=== PATIENT | female | born 1975 | race Caucasian/White ===

== ENCOUNTER → 2016-09-28 | Outpatient (CLI) | payer BC ==
[2016-09-28 13:19] LABS: BASOPHILS # (AUTO) 0.06 10*3/UL; BASOPHILS % (AUTO) 1.1 % (0-1); EOSINOPHILS # (AUTO) 0.17 10*3/UL; HEMATOCRIT 40.2 % (37.0-47.0); HEMOGLOBIN 13.2 g/dL (12.0-16.0); LYMPHOCYTES # (AUTO) 1.95 10*3/uL; MEAN CORPUSCULAR HEMOGLOBIN 26.1 PG (27-31); MEAN CORPUSCULAR HGB CONC 32.8 g/dL (33-37); MEAN CORPUSCULAR VOLUME 79.6 FL (81-99); MEAN PLATELET VOLUME 10.9 FL (7.4-12.2); MONOCYTES # (AUTO) 0.47 10*3/UL (0.3-0.8); MONOCYTES % (AUTO) 8.3 % (5-15); NEUTROPHILS # (AUTO) 3.01 10*3/UL; PLATELET MORPHOLOGY COMMENT NORMAL MORPHOLOGY (NORM); RBC MORPHOLOGY COMMENT NORMAL MORPHOLOGY (NORM); RED BLOOD COUNT 5.05 10^6/uL (4.20-5.40); WBC MORPHOLOGY COMMENT NORMAL MORPHOLOGY (NORM)
[2016-09-28 14:09] LABS: BLOOD UREA NITROGEN 7 mg/dL (7-22); CALCIUM 9.5 mg/dL (8.7-10.7); CHOL/HDL RATIO 4.43 RATIO (0-4.0); EST GLOMERULAR FILTRATION > 60 (>60 ml/min/1.73m(2)); HDL CHOLESTEROL 41 mg/dL (40-150); SERUM ALBUMIN 3.7 g/dL (3.5-4.8); SERUM CHOLESTEROL 182 mg/dL (120-200)
== END ==
LOC: MOB LAB 10:40
PROVIDERS: ATTEND Nurse Practitioner Family
DX: Z02.1 Encounter for pre-employment examination (principal)
CPT/HCPCS: 36415; 80053; 80061; 84443; 85025

== ENCOUNTER → 2016-10-07 | Outpatient (CLI) | payer BC ==
--- NOTE | 2016-10-07 15:33 | EKG ---
[address] [address] Measurements Intervals [place] Rate: 60 P: 56 OH: 153 QRS: 57 QRSD: 86 T: 45 QT: 442 QTc: 444 Interpretive Statements SINUS RHYTHM Compared to ECG 04/30/2014 14:16:19 No significant changes Electronically Signed On 10-07-16 17:16:51 MDT by Douglas Stanley [email or web address]
== END ==
LOC: MOB EKG 15:21
PROVIDERS: ATTEND Nurse Practitioner Family
DX: R00.2 Palpitations (principal); I49.3 Ventricular premature depolarization
CPT/HCPCS: 93005; 93010

== ENCOUNTER → 2016-10-16 | Outpatient (CLI) | payer BC | LOC: US 12:51 | PROVIDERS: ATTEND Nurse Practitioner Family | DX: R00.2 Palpitations (principal); R42 Dizziness and giddiness | CPT/HCPCS: 93306 ==

== ENCOUNTER → 2016-10-21 | Outpatient (CLI) | payer BC | LOC: LAB 07:30 | PROVIDERS: ATTEND Nurse Practitioner Family | DX: R19.7 Diarrhea, unspecified (principal); K92.1 Melena | CPT/HCPCS: 87046; 87205; 87328; 87329; 87493 ==

== ENCOUNTER 2017-05-01 22:35 | Inpatient (IN) ==
[2017-05-01] MEDS ORDERED: Sodium Chloride 0.9% 1,000 ML ONE (22:58)
[2017-05-01] MEDS ORDERED: fentaNYL Inj 100 MCG/2 ML VIAL IVP ONE (23:02)
[2017-05-01] MEDS ORDERED: NORMAL SALINE 10 ML SYRINGE FLUSH IVP PRN (23:02)
[2017-05-01] MEDS ORDERED: ONDANSETRON 4 MG/2 ML VIAL IVP ONE (23:02)
[2017-05-01 23:25] LABS: BASOPHILS # (AUTO) 0.05 10*3/UL; BASOPHILS % (AUTO) 0.8 % (0-1); EOSINOPHILS # (AUTO) 0.34 10*3/UL; EOSINOPHILS % (AUTO) 5.2 % (0-8); Hematocrit [HCT] 37.8 % (37.0-47.0); LYMPHOCYTES # (AUTO) 0.73 10*3/uL; MEAN CORPUSCULAR HEMOGLOBIN 29.5 PG (27-31); MEAN CORPUSCULAR HGB CONC 34.4 g/dL (33-37); MEAN CORPUSCULAR VOLUME 85.7 FL (81-99); MEAN PLATELET VOLUME 9.4 FL (7.4-12.2); MONOCYTES # (AUTO) 0.49 10*3/UL (0.3-0.8); MONOCYTES % (AUTO) 7.5 % (5-15); NEUTROPHILS # (AUTO) 4.91 10*3/UL; NEUTROPHILS % (AUTO) 75.1 % (50-80); RED BLOOD COUNT 4.41 10^6/uL (4.20-5.40)
[2017-05-01 23:27] LABS: PLATELET MORPHOLOGY COMMENT NORMAL MORPHOLOGY (NORM); RBC MORPHOLOGY COMMENT NORMAL MORPHOLOGY (NORM); WBC MORPHOLOGY COMMENT NORMAL MORPHOLOGY (NORM)
[2017-05-01 23:36] LABS: BUN/CREATININE RATIO 14.54 (6-20); SERUM ALBUMIN 4.5 g/dL (3.5-4.8)
--- NOTE | 2017-05-01 23:44 | PDOC ---
Abdomen/Flank HPI - General Chief Complaint: Genitourinary Complaint Stated Complaint: right abdomen/flank pain Date Seen by Provider: 05/01/17 Time Seen by Provider: 22:55 Source: POSITIVE: Patient Exam Limitations: POSITIVE: No limitations Nurse's Notes Reviewed & Considered: Yes - History of Present Illness Initial Comments: The patient is a 42-year-old female who presents to the emergency department with complaints of right flank and right lower quadrant abdominal pain. She has a history of colon cancer and is status post resection in [facility] 3 weeks ago. She does have an ostomy in the right lower abdomen. She states that earlier this week she had developed some pressure after urinating in her lower abdomen and pelvis. She underwent workup which included a CT scan which showed postoperative changes however no definitive abscess or any other acute abnormality. Her urinalysis had revealed some white blood cells and red blood cells and she was placed on antibiotics for treatment of urinary tract infection. She continues to have those same symptoms however this evening she has had onset of worsening pain on her right flank area with some radiation of pain around to her right lower abdomen. She has associated nausea and had emesis 1. She states that she still is having stool out of her ostomy which appears normal. She denies dysuria or hematuria. She still has that vague pressure sensation after she urinates. She denies fevers or chills. This evening she tried taking oxycodone as well as Valium and had no pain relief. - Patient Home Medications Home Medications: Home Medications Omeprazole 2 cap PO BID #180 cap 08/06/16 Simvastatin [Zocor] 1 tab ORAL QD #90 tab 08/06/16 Metoprolol Succinate 75 mg PO QD #90 tab 10/07/16 Apixaban [Eliquis] 5 mg PO Q12H #60 tab 02/20/17 hydrocodone 5 mg-acetaminophen 300 mg tablet 1 tab PO BID PRN #30 tab 03/12/17 tvitsywveo-wsbgilnyeakxe-huxkjuce 50 mg-300 mg-40 mg capsule 1 cap PO Q4H PRN # 30 cap 03/25/17 Sulfamethoxazole/Trimethoprim [Bactrim Ds Tablet] 1 tab PO Q12H #20 tab amoxicillin 875 mg-potassium clavulanate 125 mg tablet 1 tab PO BID #10 tab 04/18 - Patient Allergies Allergies/Adverse Reactions: Allergies 3 Allergy/AdvReac Type Severity Reaction Status Date / Time morphine Allergy Intermediate tightness Verified 05/01/17 23:09 in chest Penicillins Allergy Unknown NOT Verified 05/01/17 23:09 APPLICABLE Past Medical History - heen HEENT History: Denies History Cardiovascular History: DVTs, Hyperlipidemia Additional Cardiovasular History: palpatations. DVT 2006 with knee surgery and Both lungs. DVT 02/20/2017 Right lung Respiratory History: Pulmonary Embolism, Other (please comment) Additional Respiratory History: damaged to right side from PE in 2006 Gastrointestinal History: GERD, Other (please comment) Additional Gastrointestinal History: Diarrhea, BRBPR Genitourinary History: Denies History Endocrine History: Denies History Musculoskeletal History: Denies History, Other (please comment) Prosthesis or Implant: Yes (neck hwr/port right side) Additional Musculoskeletal History: her neck-bulging 3 surgeries- still not fused, nerve stimulator inserted and didn't work and removed Neurological History: Migraines, Motion Sickness, Frequent Headaches Additional Neurological History: 2-3 times a month-migraine. daily REES Blood Disorders: Anemia Additional Blood Disorders History: Given a bag of iron 2016 Psychiatric History: Denies History History of Sexually Transmitted Diseases: No Cancer History: Colon Cancer Treatment / Date(s) of Treatment: currently undergoing chemo/radiation History of MDRO: No History of Other Communicable Diseases: No In the Past 12 Months, Have Used or Abuse Any Substance: None Previous Surgical History: Yes Type / Date of Surgery: EGD/ Neck surgery 2006-neck x4 / Endometral ablation 2005/ left Knee surgery 2005/Colonoscopy/PORT right upper chest 2016 Anesthesia Reactions: Yes (PONV) Malignant Hyperthermia: No Significant Family History: Heart disease, Diabetes, Vascular disease Additional Family History: Rheumatiod arthritis/ Hyperlipidemia Past Medical History Reviewed: Reviewed - No Changes ROS - Limitations ROS Limitations: No Limitations Constitution: DENIES: Chills, Fever Cardiovascular: REPORTS: Denies Cardiac Symptoms Respiratory: REPORTS: Denies Resp Symptoms Neurological: REPORTS: Denies Neuro Symptoms Gastrointestinal: REPORTS: Abdominal Pain, Nausea, Vomitting. DENIES: Black Stools, Bloody Stools Musculoskeletal: REPORTS: Denies MS Symptoms Genitourinary: DENIES: Dysuria Abdomen Progress - Results Reviewed by me Xrays/CTs/US Reviewed by me: Yes Discussed with Radiologist: Yes Radiology Findings: CT scan of the abdomen and pelvis with IV contrast reveals continued mild inflammatory changes at the anastomotic site in the colon along with some nonspecific small amount of free air and fluid basically unchanged from CT scan from April 26. No obstructive uropathy, bowel obstruction or any other acute findings per radiologist. Lab Results Reviewed by Me: Yes CBC and BMP: 05/01/17 23:10 05/01/17 23:10 - Patient's Progress MDM / ED Course: The patient appeared to be quite uncomfortable on arrival. An IV was established and she received fentanyl and Zofran IV for pain. This really had minimal effect and she received a second dose of fentanyl again with only minimal improvement. She subsequently received Dilaudid 1 mg IV. Her pain improved slightly and her oxygen saturations dropped so she was placed on O2 per nasal cannula. After CT results were available she received Toradol 15 mg IV. Her pain slowly improved to a 5 out of 10. Her lab work is all essentially unremarkable with a normal white count and normal CRP. CT scan of the abdomen and pelvis done with IV contrast reveals continued inflammatory changes around the anastomotic site in the colon with some nonspecific small amount of free fluid and small amount of free air similar in appearance to the CAT scan done on April 26. No hydronephrosis and no other acute intra- abdominal findings per radiologist. I did discuss the patient with Dr. Gerard and he was concerned about a small leak from the anastomotic site in the colon. He recommended hospitalization on IV antibiotics and pain control. I subsequently spoke with Dr. Burroughs and he has agreed to admit the patient. She was started on Invanz 1 g IV. Findings and recommendations were discussed with the patient and her and they're in agreement with current plan. - Consult Counseled: POSITIVE: Patient, RE: Lab Results, RE: Radiology Results, RE: DX, RE : Need for F/U Patient Care Time - Estimated PCT Patient Care Time (In Minutes): 45 Vital Signs - VS Reviewed Vital Signs Reviewed: Yes Discharge Clinical Impression: Abdominal pain, Flank pain Discharge Disposition: Admit to Inpatient Condition: Stable Follow Up With: ERIKA PINEDO FNP [Primary Care Provider] - Date Decision to Admit to Inpatient: 05/02/17 Time Decision to Admit to Inpatient: 02:00
[2017-05-02] MEDS ORDERED: HYDROmorphone 2 MG/1 ML IVP ONE (00:12)
--- NOTE | 2017-05-02 01:15 | DI ---
EXAM: CT Abdomen and Pelvis With Intravenous Contrast CLINICAL HISTORY: ITS.REASON Abdominal Pain Physician Notes: Tech Comments: TECHNIQUE: Axial computed tomography images of the abdomen and pelvis with intravenous contrast. COMPARISON: CT abdomen pelvis dated 04/26/2017. FINDINGS: Lower thorax: No acute findings. ABDOMEN: Liver: Unchanged 5 mm low-attenuation lesion in the inferior liver is nonspecific. Gallbladder and bile ducts: Unremarkable. No calcified stones. No ductal dilation. Pancreas: Unremarkable. No evidence of mass. No ductal dilation. Spleen: Unremarkable. No splenomegaly. Adrenals: Unremarkable. No mass. Kidneys and ureters: Unchanged simple appearing 4.6 cm left renal cyst. No hydronephrosis. Stomach and bowel: Reidentified post surgical changes related to rectal surgery and anastomosis. There is reidentified mild intraperitoneal air, similar to the prior exam. There is unchanged minimal fluid and fat stranding within the pelvis adjacent to the distal sigmoid colon there is nonspecific. Right lower quadrant ostomy. No obstruction. No mucosal thickening. Appendix: No findings to suggest acute appendicitis. PELVIS: Bladder: Unremarkable. No evidence of mass. Reproductive: Reidentified presumed uterine fibroids. ABDOMEN and PELVIS: Intraperitoneal space: Unremarkable. No free air. No significant fluid collection. Bones/joints: No acute fracture. Soft tissues: Unremarkable. Vasculature: Unremarkable. No abdominal aortic aneurysm. Lymph nodes: Unremarkable. No enlarged lymph nodes. IMPRESSION: Reidentified postoperative and possibly posttreatment findings related to prior rectosigmoid anastomosis with unchanged nonspecific fluid and fat stranding in the pelvis. Unchanged minimal intraperitoneal free air is somewhat greater than expected at this stage. Unchanged 5 mm nonspecific low attenuation hepatic lesion is too small to characterize.
[2017-05-02] MEDS ORDERED: KETOROLAC 15 MG/1 ML VIAL IVP ONE (01:28)
[2017-05-02] MEDS ORDERED: KETOROLAC 15 MG/1 ML VIAL ONE (01:29)
[2017-05-02 01:40] LABS: BILIRUBIN,URINE NEGATIVE (NEG); CLARITY,URINE CLOUDY (CLEAR); COLOR,URINE BROWN (Y); GLUCOSE, URINE (UA) NEGATIVE (NEG); OCCULT BLOOD,URINE LARGE (NEG); PH,URINE 5.5 (5.0-8.5); PROTEIN,URINE 100 mg/dl (NEG); UROBILINOGEN,URINE 0.2 EU/dL (0.2)
[2017-05-02 01:50] LABS: BACTERIA,URINE RARE; RBC,URINE >100 /hpf; RENAL EPITHELIAL CELLS,URINE MODERATE; SQUAMOUS EPITHELIAL CELL,UR MANY; URINE SAMPLE TYPE CLEAN CATCH URINE
[2017-05-02] MEDS ORDERED: Sodium Chloride 0.9% 1,000 ML PRIMARY IV ONE ×3 (01:50→11:33)
[2017-05-02 01:51] LABS: URINE CASTS MODERATE
[2017-05-02] MEDS ORDERED: Ertapenem Inj 1 GM in Sodium Chloride 0.9% 100 ML IV ONE ×2 (01:54→02:11)
[2017-05-02] MEDS ORDERED: ACETAMINOPHEN 325 MG TABLET PO PRN (02:11)
[2017-05-02] MEDS ORDERED: NORMAL SALINE 10 ML SYRINGE FLUSH IVP PRN (02:11)
[2017-05-02] MEDS ORDERED: CALCIUM CARBONATE 500 MG (TUMS) CHEWABLE TABLET PO PRN (02:11)
[2017-05-02] MEDS ORDERED: Apixaban 5 MG TABLET PO SCH (02:11)
[2017-05-02] MEDS ORDERED: DOCUSATE 100 MG CAPSULE PO PRN (02:11)
[2017-05-02] MEDS ORDERED: LIDOCAINE W/ SODIUM BICARB 0.5 ML SYR SUBD PRN (02:11)
[2017-05-02] MEDS: Sodium Chloride 0.9% 1,000 ML PRIMARY IV SCH ×3 (02:26→21:20)
[2017-05-02] MEDS ORDERED: HYDROcodone-APAP 5 MG -325 MG TABLET PO PRN (02:30)
[2017-05-02] MEDS ORDERED: Acet/Butalb/Caff 325-50-40 1 TAB TABLET PO PRN (02:30)
[2017-05-02] MEDS ORDERED: oxyCODONE/APAP 10/325 Tab 1 EACH TAB PO PRN (05:11)
[2017-05-02] MEDS ORDERED: DIAZEPAM 5 MG TABLET PO PRN (05:13)
[2017-05-02] MEDS: HYDROmorphone 2 MG/1 ML IVP PRN ×4 (05:23→15:57)
[2017-05-02] MEDS: ONDANSETRON 4 MG/2 ML VIAL IVP PRN ×2 (07:58→12:34)
[2017-05-02] MEDS: Apixaban 5 MG TABLET PO SCH ×2 (08:57→21:16)
[2017-05-02] MEDS: METOPROLOL SUCCINATE 50 MG SR 24H TABLET PO SCH (10:40)
[2017-05-02] MEDS ORDERED: oxyCODONE IR Tab 5 MG TAB PO PRN (10:45)
[2017-05-02] MEDS ORDERED: HEPARIN 500 UNIT/5 ML SYRINGE FOR CENTRAL LINE IVP ONE (10:51)
[2017-05-02 11:14] LABS: BASOPHILS # (AUTO) 0.04 10*3/UL; EOSINOPHILS # (AUTO) 0.24 10*3/UL; Hematocrit [HCT] 33.4 % (37.0-47.0); LYMPHOCYTES # (AUTO) 0.71 10*3/uL; MEAN CORPUSCULAR HEMOGLOBIN 29.2 PG (27-31); MEAN CORPUSCULAR HGB CONC 32.9 g/dL (33-37); MEAN CORPUSCULAR VOLUME 88.6 FL (81-99); MEAN PLATELET VOLUME 9.4 FL (7.4-12.2); MONOCYTES # (AUTO) 0.46 10*3/UL (0.3-0.8); MONOCYTES % (AUTO) 11.5 % (5-15); NEUTROPHILS # (AUTO) 2.54 10*3/UL; NEUTROPHILS % (AUTO) 63.7 % (50-80); RED BLOOD COUNT 3.77 10^6/uL (4.20-5.40)
[2017-05-02 11:19] LABS: PLATELET MORPHOLOGY COMMENT NORMAL MORPHOLOGY (NORM); RBC MORPHOLOGY COMMENT NORMAL MORPHOLOGY (NORM); WBC MORPHOLOGY COMMENT NORMAL MORPHOLOGY (NORM)
[2017-05-02 11:28] LABS: BLOOD UREA NITROGEN 14 mg/dL (7-22); SERUM ALBUMIN 3.5 g/dL (3.5-4.8)
--- NOTE | 2017-05-02 12:54 | PDOC ---
HPI - History of Present Illness Date of Service: 05/02/17 Time of Service: 10:30 Chief Complaint: Right-sided pain History of Present Illness: This very pleasant 42-year-old female recently diagnosed with a rectal cancer and 3 weeks ago she had a partial resection of the colon with a diverting ileostomy. About a week ago, she developed bladder pressure and was diagnosed with a urinary tract infection, and placed on antibiotics. The bladder pressure has been persistent for the patient. She states it does not burn or hurt like a urinary tract infection, but she's had continuous bladder pressure. Yesterday, she had sudden onset of right flank pain, just below her ribs and her back, and it seemed to radiate downwards but not down her leg. She stated it went into her pelvic bone area. She's never had anything like this before. She had to vomit because of the pain. She denied any fevers or chills. A CT scan of the abdomen and pelvis showed postoperative changes with some inflammatory changes, but no evidence of stone but the CT scan was done with contrast. He has never had a kidney stone before. Urinalysis was negative for infection, but was significant for a large amount of red blood cells. Interestingly, the patient states that she's been increasing her water intake since her diagnosis of rectal carcinoma, and that her urine has been very clear as of late. When she had a "Pond colored" urine yesterday, she was quite surprised by the appearance of the urine. She did take oxycodone for her postoperative pain to try and control the right flank pain and it did not help at all. Valium also did not help. Toradol seemed to help the most in the emergency room yesterday, but this morning, the patient is hypotensive and is requiring more fluids. She does not appear septic despite her hypotension. The patient also mentioned that it was very difficult to have her pain and improve with position changes. Past Medical History Medical History: 1. Rectal carcinoma. 2. Palpitations, presumably related to PVCs, on beta negro therapy for this. 3. History of PEs 2, in relation to her recent Mediport for chemotherapy and also with a knee surgery in the past. 4. Hypercholesterolemia Surgical History: Mediport placed. History of colonoscopy. History of EGD. History of neck surgery. Status post endometrial ablation (~2005). Status post knee surgery (~2005). The patient had recent partial colon resection with an ileostomy Pertinent Family History: Significant for heart disease and diabetes Past Social History: Does not smoke or drink alcohol. . Has 2 healthy children both in college. 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 Tobacco Use: Never Smoker In the Past 12 Months, Have Used or Abuse Any of the Following Substance: None Alcohol Use: None Medication / Allergies Home Medications: Home Medications 3 Medication Instructions Recorded Confirmed Type Omeprazole 2 cap PO BID #180 cap 08/06/16 04/26/17 Rx Simvastatin [Zocor] 1 tab ORAL QD #90 tab 08/06/16 04/26/17 Rx Metoprolol Succinate 75 mg PO QD #90 tab 10/07/16 Clinic Apixaban [Eliquis] 5 mg PO Q12H #60 tab 02/20/17 04/26/17 Rx aauvnazpue-xxrwsvxbtdpeb-kbfrwphl 1 cap PO Q4H PRN #30 cap 03/25/17 04/26/17 Rx 50 mg-300 mg-40 mg capsule amoxicillin 875 mg-potassium 1 tab PO BID #10 tab 04/30/17 04/30/17 Rx clavulanate 125 mg tablet Diazepam 5 mg PO BID 05/02/17 05/02/17 History Oxycodone HCl 1 - 2 tab PO 05/02/17 History Allergies/Adverse Reactions: Allergies 3 Allergy/AdvReac Type Severity Reaction Status Date / Time morphine Allergy Intermediate tightness Verified 05/02/17 06:22 in chest Penicillins Allergy Unknown NOT Verified 05/02/17 06:22 APPLICABLE Review of Systems - Constitutional Constitutional: REPORTS: Night Sweats (She states that she has not had a period in over 12 weeks and may have gone into menopause from her radiation therapy.) - Respiratory Respiratory: REPORTS: Negative System Review - Cardiovascular Cardiovascular: REPORTS: Negative System Review - Gastrointestinal Gastrointestinal / Abdominal: REPORTS: See HPI - Genitourinary Genitourinary: REPORTS: Other (Bladder pressure. Denied hematuria at home.) - Musculoskeletal Musculoskeletal: REPORTS: Negative System Review - Neurological Neurologic: REPORTS: Headache (States she has a daily headache that she takes Excedrin daily.) - Psychiatric Psychiatric: REPORTS: Negative System Review Exam - Vitals Vital Signs: Vital Signs Temperature 97.9 F Temperature Source Temporal Artery Scan Pulse Rate [Apical] 62 Pulse Rate [Pulse Oximeter] 64 Pulse Rate 70 Respiratory Rate 17 Blood Pressure [Left Arm] 88/49 Blood Pressure 119/74 Pulse Ox 95 Oxygen Flow Rate 2 Oxygen Delivery Method Room Air Height 5 ft 9 in Weight 181 lb 3.2 oz - General General Appearance: No Acute Distress, Cooperative - Head Head Exam: Normal Inspection, Normocephalic, Atraumatic - Eye Eye Exam: POSITIVE: No Scleral Icterus - ENT ENT Exam: POSITIVE: Mucous Membranes Moist - Neck Neck Exam: Normal Inspection, No Tenderness, No Lymphadenopathy, No Thyromegaly - Respiratory Respiratory Exam: POSITIVE: Clear to Auscultation - Bilaterally, Breathing Non Labored, Normal to Percussion and Palpation - Cardiovascular Cardiovascular Exam: POSITIVE: RRR, No Murmur, No Clicks, No Gallops, No Rubs, No JVD - GI/Abdominal GI/Abdominal Exam: POSITIVE: Normal Bowel Sounds, Non Tender, Non Distended, Soft Additional GI/Abdominal Exam Details: Ileostomy site looks okay. Incisions are clean, dry, intact. They look healed up fairly well. Seen with distribution lineman nurse in room. I could not elicit any flank tenderness on palpation. - Rectal Rectal Exam: POSITIVE: Deferred - External Exam: POSITIVE: Deferred - Extremities Extremities Exam: POSITIVE: No Clubbing Present, No Edema Present, No Cyanosis Present - Back Back Exam: POSITIVE: Normal Inspection, No CVA Tenderness - Neurological Neurological Exam: POSITIVE: Alert, Oriented x 3, No Facial Droop, Speech Intact / Clear, Moves All Extremities Equally - Psychiatric Psychiatric Exam: POSITIVE: Normal Affect, Normal Mood Results - Labs CBC and BMP: 05/02/17 10:08 05/02/17 10:08 Additional Lab Results: Laboratory Results 05/01/17 05/01/17 05/01/17 Range/Units 01:30 23:10 23:10 WBC 6.53 (4.8-10.8) 10^3/uL RBC 4.41 (4.20-5.40) 10^6/uL Hgb 13.0 (12.0-16.0) g/dL Hct 37.8 (37.0-47.0) % MCV 85.7 (81-99) FL MCH 29.5 (27-31) PG MCHC 34.4 (33-37) g/dL RDW Std Deviation 38.0 L (39-50) fL RDW Coeff of Eulalia 12.5 (11.5-14.5) % Plt Count 422 H (140-350) 10*3/uL MPV 9.4 (7.4-12.2) FL Immature Gran % (Auto) 0.2 (0-5) % Neut % (Auto) 75.1 (50-80) % Lymph % (Auto) 11.2 (10-50) % [place] % (Auto) 7.5 (5-15) % Eos % (Auto) 5.2 (0-8) % Baso % (Auto) 0.8 (0-1) % Immature Gran # (Auto) 0.01 10*3/UL Neut # (Auto) 4.91 10*3/UL Lymph # (Auto) 0.73 10*3/uL [place] # (Auto) 0.49 (0.3-0.8) 10*3/UL Eos # (Auto) 0.34 10*3/UL Baso # (Auto) 0.05 10*3/UL WBC Morphology Comment Normal morphology (NORM) Plt Morphology Comment Normal morphology (NORM) RBC Morph Comment Normal morphology (NORM) PT (9.7-11.4) secs INR (0.00-5.90) N/A APTT (22.6-36.2) SECS Sodium 140 (135-145) meq/L Potassium 3.9 (3.8-5.2) meq/L Chloride 102 (98-112) meq/L Carbon Dioxide 22 L (23-33) meq/L Anion Gap 16 (5-20) BUN 16 (7-22) mg/dL Creatinine 1.1 (0.50-1.20) mg/dL Estimated GFR 54 (>60 ml/min/1.73m(2)) BUN/Creatinine Ratio 14.54 (6-20) Glucose 116 H (78-110) mg/dL Calculated Osmolality 291.0 (267-292) mOsm/kg Lactic Acid (0.70-2.10) MMOL/L Calcium 10.0 (8.7-10.7) mg/dL Total Bilirubin 0.3 (0.3-1.2) mg/dL AST 17 (8-39) IU/L ALT 29 (9-52) IU/L Alkaline Phosphatase 86 (38-126) IU/L C-Reactive Protein 0.9 (0.0-0.9) mg/dL Total Protein 7.3 (6.1-8.0) g/dL Albumin 4.5 (3.5-4.8) g/dL Globulin 2.8 (2.50-4.10) g/dL Albumin/Globulin Ratio 1.60 (1.3-2.0) mg/g Amylase 83 (30-110) U/L Lipase 64 (23-300) IU/L Serum HCG, Qual Ur Collection Type Clean catch urine Urine Color Brown A (Y) Urine Clarity Cloudy A (CLEAR) Urine pH 5.5 (5.0-8.5) Ur Specific [place] 1.015 (1.005-1.030) Urine Protein 100 A (NEG) mg/dl Urine Glucose (UA) Negative (NEG) mg/dL Urine Ketones Negative (NEG) Urine Occult Blood Large H (NEG) Urine Nitrate Negative (NEG) Urine Bilirubin Negative (NEG) Urine Urobilinogen 0.2 (0.2) EU/dL Ur Leukocyte Esterase Negative (NEG) Urine RBC >100 A (NONE) /hpf Urine WBC None (NONE) Ur Squamous Epith Cells Many (NONE) Ur Renal Epithelial Cell Moderate (NONE) Urine Crystals None Urine Bacteria Rare (NONE) Urine Casts Moderate (NONE) Urine Mucus Many (NONE) Urine Trichomonas None (NONE) Urine Yeast None (NONE) Ur Culture Indicated? Culture not set 05/01/17 05/02/17 05/02/17 Range/Units 23:10 10:08 10:08 WBC 3.99 L (4.8-10.8) 10^3/uL RBC 3.77 L (4.20-5.40) 10^6/uL Hgb 11.0 L (12.0-16.0) g/dL Hct 33.4 L (37.0-47.0) % MCV 88.6 (81-99) FL MCH 29.2 (27-31) PG MCHC 32.9 L (33-37) g/dL RDW Std Deviation 39.2 (39-50) fL RDW Coeff of Eulalia 12.5 (11.5-14.5) % Plt Count 377 H (140-350) 10*3/uL MPV 9.4 (7.4-12.2) FL Immature Gran % (Auto) 0 (0-5) % Neut % (Auto) 63.7 (50-80) % Lymph % (Auto) 17.8 (10-50) % [place] % (Auto) 11.5 (5-15) % Eos % (Auto) 6.0 (0-8) % Baso % (Auto) 1.0 (0-1) % Immature Gran # (Auto) 0 10*3/UL Neut # (Auto) 2.54 10*3/UL Lymph # (Auto) 0.71 10*3/uL [place] # (Auto) 0.46 (0.3-0.8) 10*3/UL Eos # (Auto) 0.24 10*3/UL Baso # (Auto) 0.04 10*3/UL WBC Morphology Comment Normal morphology (NORM) Plt Morphology Comment Normal morphology (NORM) RBC Morph Comment Normal morphology (NORM) PT 11.4 (9.7-11.4) secs INR 1.07 (0.00-5.90) N/A APTT 33.2 (22.6-36.2) SECS Sodium (135-145) meq/L Potassium (3.8-5.2) meq/L Chloride (98-112) meq/L Carbon Dioxide (23-33) meq/L Anion Gap (5-20) BUN (7-22) mg/dL Creatinine (0.50-1.20) mg/dL Estimated GFR (>60 ml/min/1.73m(2)) BUN/Creatinine Ratio (6-20) Glucose (78-110) mg/dL Calculated Osmolality (267-292) mOsm/kg Lactic Acid (0.70-2.10) MMOL/L Calcium (8.7-10.7) mg/dL Total Bilirubin (0.3-1.2) mg/dL AST (8-39) IU/L ALT (9-52) IU/L Alkaline Phosphatase (38-126) IU/L C-Reactive Protein (0.0-0.9) mg/dL Total Protein (6.1-8.0) g/dL Albumin (3.5-4.8) g/dL Globulin (2.50-4.10) g/dL Albumin/Globulin Ratio (1.3-2.0) mg/g Amylase (30-110) U/L Lipase (23-300) IU/L Serum HCG, Qual Negative Ur Collection Type Urine Color (Y) Urine Clarity (CLEAR) Urine pH (5.0-8.5) Ur Specific [place] (1.005-1.030) Urine Protein (NEG) mg/dl Urine Glucose (UA) (NEG) mg/dL Urine Ketones (NEG) Urine Occult Blood (NEG) Urine Nitrate (NEG) Urine Bilirubin (NEG) Urine Urobilinogen (0.2) EU/dL Ur Leukocyte Esterase (NEG) Urine RBC (NONE) /hpf Urine WBC (NONE) Ur Squamous Epith Cells (NONE) Ur Renal Epithelial Cell (NONE) Urine Crystals Urine Bacteria (NONE) Urine Casts (NONE) Urine Mucus (NONE) Urine Trichomonas (NONE) Urine Yeast (NONE) Ur Culture Indicated? 05/02/17 05/02/17 Range/Units 10:08 10:08 WBC (4.8-10.8) 10^3/uL RBC (4.20-5.40) 10^6/uL Hgb (12.0-16.0) g/dL Hct (37.0-47.0) % MCV (81-99) FL MCH (27-31) PG MCHC (33-37) g/dL RDW Std Deviation (39-50) fL RDW Coeff of Eulalia (11.5-14.5) % Plt Count (140-350) 10*3/uL MPV (7.4-12.2) FL Immature Gran % (Auto) (0-5) % Neut % (Auto) (50-80) % Lymph % (Auto) (10-50) % [place] % (Auto) (5-15) % Eos % (Auto) (0-8) % Baso % (Auto) (0-1) % Immature Gran # (Auto) 10*3/UL Neut # (Auto) 10*3/UL Lymph # (Auto) 10*3/uL [place] # (Auto) (0.3-0.8) 10*3/UL Eos # (Auto) 10*3/UL Baso # (Auto) 10*3/UL WBC Morphology Comment (NORM) Plt Morphology Comment (NORM) RBC Morph Comment (NORM) PT (9.7-11.4) secs INR (0.00-5.90) N/A APTT (22.6-36.2) SECS Sodium 138 (135-145) meq/L Potassium 4.1 (3.8-5.2) meq/L Chloride 106 (98-112) meq/L Carbon Dioxide 24 (23-33) meq/L Anion Gap 8 (5-20) BUN 14 (7-22) mg/dL Creatinine 0.8 (0.50-1.20) mg/dL Estimated GFR > 60 (>60 ml/min/1.73m(2)) BUN/Creatinine Ratio 17.50 (6-20) Glucose 95 (78-110) mg/dL Calculated Osmolality 286.0 (267-292) mOsm/kg Lactic Acid 0.6 L (0.70-2.10) MMOL/L Calcium 8.5 L (8.7-10.7) mg/dL Total Bilirubin 0.3 (0.3-1.2) mg/dL AST 10 (8-39) IU/L ALT 25 (9-52) IU/L Alkaline Phosphatase 64 (38-126) IU/L C-Reactive Protein (0.0-0.9) mg/dL Total Protein 5.9 L (6.1-8.0) g/dL Albumin 3.5 (3.5-4.8) g/dL Globulin 2.4 L (2.50-4.10) g/dL Albumin/Globulin Ratio 1.40 (1.3-2.0) mg/g Amylase (30-110) U/L Lipase (23-300) IU/L Serum HCG, Qual Ur Collection Type Urine Color (Y) Urine Clarity (CLEAR) Urine pH (5.0-8.5) Ur Specific [place] (1.005-1.030) Urine Protein (NEG) mg/dl Urine Glucose (UA) (NEG) mg/dL Urine Ketones (NEG) Urine Occult Blood (NEG) Urine Nitrate (NEG) Urine Bilirubin (NEG) Urine Urobilinogen (0.2) EU/dL Ur Leukocyte Esterase (NEG) Urine RBC (NONE) /hpf Urine WBC (NONE) Ur Squamous Epith Cells (NONE) Ur Renal Epithelial Cell (NONE) Urine Crystals Urine Bacteria (NONE) Urine Casts (NONE) Urine Mucus (NONE) Urine Trichomonas (NONE) Urine Yeast (NONE) Ur Culture Indicated? - Imaging Status: Image Reviewed by Me (I looked at the CT scan, and read the report. There are some postsurgical inflammatory changes.) Assessment and Plan - Patient Problems (1) Acute right flank pain Current Visit: Yes Status: Acute Code(s): R10.9 - Unspecified abdominal pain (2) Rectal cancer Current Visit: No Status: Acute Code(s): C20 - Malignant neoplasm of rectum (3) Hematuria Current Visit: Yes Status: Acute Code(s): R31.9 - Hematuria, unspecified Qualifiers: Hematuria type: other microscopic Qualified Code(s): R31.29 - Other microscopic hematuria; R31.2 - Other microscopic hematuria (4) Hypercholesterolemia Current Visit: Yes Status: Acute Code(s): E78.00 - Pure hypercholesterolemia , unspecified (5) Palpitations Current Visit: Yes Status: Acute Code(s): R00.2 - Palpitations - Assessment / Plan Additional Assessment/Plan Details: For the hypotension, bolus the patient with 2 L of normal saline, keep him saline at 125 mL's per hour. I'm going to repeat CT scan with no contrast to look for kidney stones. This year and does not look infected, for now, the patient is on Invanz 1 g IV every 24 hours. We may need to stop antibiotics as I'm not sure that we have a true infectious source at this point. There is some thought that maybe this could be a postinflammatory issue from the initial colon surgery, but there is no evidence of abscess on CT scan. Dilaudid for pain. Further diagnostic evaluation based on CT scan results above. One thought could be that perhaps the patient's developing some sort of pelvic inflammatory disease with pressure with urination and migratory pains that her flank pains. It would be rare, but can happen postoperatively. However the incision looks clean and does not look like it has any induration or redness around it. I discussed with general surgery, but there does not seem to be a surgical indication at this time for this patient.
--- NOTE | 2017-05-02 14:17 | DI ---
EXAM: CT Abdomen and Pelvis Without Intravenous Contrast CLINICAL HISTORY: right flank pain, question kidney stone TECHNIQUE: Axial computed tomography images of the abdomen and pelvis without intravenous contrast. COMPARISON: CT abdomen and pelvis obtained earlier the same date. FINDINGS: Lower thorax: Mild to moderate hiatal hernia. Linear atelectasis in bilateral lung bases. ABDOMEN: Liver: Unremarkable. Gallbladder and bile ducts: Layering hyperdensity in the bladder lumen likely related to vicarious contrast excretion. No adjacent inflammatory change. No ductal dilation. Pancreas: Unremarkable. No ductal dilation. Spleen: Unremarkable. No splenomegaly. Adrenals: Unremarkable. No mass. Kidneys and ureters: Urinary contrast excretion likely related to recent contrast dose decreases sensitivity for detection of small renal stones. No large radiodense renal or ureteral stones identified. No evidence of obstructive uropathy. 4.7 cm simple-appearing cyst in the left lower renal pole. Stomach and bowel: Right lower quadrant ileostomy. Anastomosis sutures in the rectum. Adjacent presacral stranding and fluid, likely postsurgical. No obstruction. No mucosal thickening. Appendix: No findings to suggest acute appendicitis. PELVIS: Bladder: Unremarkable. Reproductive: Bulky lobulated appearance of the uterus suggests fibroids. ABDOMEN and PELVIS: Intraperitoneal space: Tiny foci of free air. No significant fluid collection. Bones/joints: Degenerative changes at the lumbosacral junction. No acute fracture. No dislocation. Soft tissues: Unremarkable. Vasculature: Unremarkable. No abdominal aortic aneurysm. Lymph nodes: Unremarkable. No enlarged lymph nodes. IMPRESSION: 1. Urinary contrast excretion related to recent contrast dose decreases sensitivity for detection of small renal stones. No large radiodense renal or ureteral stones identified. No evidence of obstructive uropathy. 2. Layering hyperdensity in the gallbladder lumen likely related to vicarious contrast excretion. Differential may also include sludge. No adjacent inflammatory change. Normal caliber of the common bile duct. 3. Mild to moderate hiatal hernia. 4. 4.7 cm simple-appearing cyst in the left lower renal pole. 5. Post surgical changes including right lower quadrant ileostomy and a rectal anastomosis. No bowel obstruction. Tiny foci of free air as well as presacral stranding and fluid adjacent to the rectal anastomosis is likely postsurgical. 6. Bulky lobulated appearance of the uterus suggests fibroids.
[2017-05-02] MEDS: KETOROLAC 15 MG/1 ML VIAL IVP PRN (15:20)
[2017-05-02] MEDS ORDERED: HEPARIN 500 UNIT/5 ML SYRINGE FOR CENTRAL LINE IVP PRN (15:22)
[2017-05-02] MEDS ORDERED: fentaNYL Inj 100 MCG/2 ML VIAL IVP PRN (15:38)
[2017-05-02] MEDS ORDERED: Prochlorperazine Edisylate Inj 10mg/2ml vial IVP PRN (15:40)
[2017-05-02] MEDS: Ertapenem Inj 1 GM in Sodium Chloride 0.9% 100 ML IV SCH (15:58)
[2017-05-02] MEDS ORDERED: DIAZEPAM 5 MG TABLET PO SCH (17:00)
--- NOTE | 2017-05-02 17:42 | PDOC ---
HPI - History of Present Illness Date of Service: 05/02/17 Time of Service: 17:32 Chief Complaint: Flank and abdominal discomfort History of Present Illness: The patient is a 42-year-old LMP about 2-3 months ago who was diagnosed with rectal carcinoma in the fall and underwent radiation therapy. The patient then had resection of the rectal carcinoma via a robotic- assisted laparoscopy and minilaparotomy for resection of the colon cancer and an ileostomy. This was completed about 3 weeks ago. By patient report, the surgeon's saw significant endometriosis at the time of surgery 3 weeks ago. The patient now presents with pain. A week ago the patient was seen for pain that was in her left flank that radiated down to her left abdomen and pelvis. The patient had a CT scan. And then the patient returned yesterday with right flank pain that radiated down to her right upper leg anteriorly. The patient had a CT scan that did not show kidney stones. There was some reactive tissue around the ileostomy site and some mild free air. The patient was placed on antibiotics and was admitted. Dr. Casey Burroughs consulted me this afternoon secondary to her pain and the fact that she had endometriosis discovered at the time of her surgery 3 weeks ago. 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 She does have a remote history of abnormal Pap smears with colposcopies but she has never had a LEEP or a cold knife cone. No histories of STI's. About 10 years ago she had menometrorrhagia with soiling of her clothes and the patient had an endometrial ablation with either a balloon ablation or NovaSure-the patient was not clear on this. 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 The patient does Not have a history of dysmenorrhea, dyspareunia or chronic pelvic pain. The patient had radiation therapy in the fall for her rectal carcinoma and since about 2-3 months ago the patient has not had a menses. The patient started having vasomotor flushes around the time of her surgery 3 weeks ago. She has significant night sweats. The patient asked her oncologist about not having menses and he said that this could be common secondary to the radiation. The patient's CT scan in October 2016 as well as currently does show what is most likely a fibroid uterus. Normal size ovaries. Past medical history significant for the rectal carcinoma as above, heart palpitations, history of PE 2 and DVT. Hypercholesterolemia. GERD Endometriosis found at the time of the partial colon resection 3 weeks ago. Operative report not available yet. Past surgical history significant for recent partial colon resection with ileostomy secondary to the rectal carcinoma. Mediport placement, history of neck surgery, history of endometrial ablation, history of knee surgery. Allergies to morphine and penicillin No tobacco, no alcohol, no drugs Current medications omeprazole, Zocor, metoprolol, Eliquis, tears set, Augmentin which was prescribed last week, diazepam when necessary, oxycodone for pain when necessary Family history of DE and diabetes Past Medical History Medical History: 1. Rectal carcinoma. 2. Palpitations, presumably related to PVCs, on beta negro therapy for this. 3. History of PEs 2, in relation to her recent Mediport for chemotherapy and also with a knee surgery in the past. 4. Hypercholesterolemia Surgical History: Mediport placed. History of colonoscopy. History of EGD. History of neck surgery. Status post endometrial ablation (~2005). Status post knee surgery (~2005). The patient had recent partial colon resection with an ileostomy Pertinent Family History: Significant for heart disease and diabetes Past Social History: Does not smoke or drink alcohol. . Has 2 healthy children both in college. 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 Tobacco Use: Never Smoker In the Past 12 Months, Have Used or Abuse Any of the Following Substance: None Alcohol Use: None Medication / Allergies Home Medications: Home Medications 3 Medication Instructions Recorded Confirmed Type Omeprazole 2 cap PO BID #180 cap 08/06/16 04/26/17 Rx Simvastatin [Zocor] 1 tab ORAL QD #90 tab 08/06/16 04/26/17 Rx Metoprolol Succinate 75 mg PO QD #90 tab 10/07/16 Clinic Apixaban [Eliquis] 5 mg PO Q12H #60 tab 02/20/17 04/26/17 Rx yuboreybbt-exzasbtkotwpi-nvmfjqhc 1 cap PO Q4H PRN #30 cap 03/25/17 04/26/17 Rx 50 mg-300 mg-40 mg capsule amoxicillin 875 mg-potassium 1 tab PO BID #10 tab 04/30/17 04/30/17 Rx clavulanate 125 mg tablet Diazepam 5 mg PO BID 05/02/17 05/02/17 History Oxycodone HCl 1 - 2 tab PO 05/02/17 History Allergies/Adverse Reactions: Allergies 3 Allergy/AdvReac Type Severity Reaction Status Date / Time morphine Allergy Intermediate tightness Verified 05/02/17 06:22 in chest Penicillins Allergy Unknown NOT Verified 05/02/17 06:22 APPLICABLE Review of Systems - Constitutional Constitutional: REPORTS: Night Sweats (Vasomotor flushes) - Respiratory Respiratory: REPORTS: Negative System Review - Cardiovascular Cardiovascular: REPORTS: Negative System Review, Palpitations - Gastrointestinal Gastrointestinal / Abdominal: REPORTS: Negative System Review, Nausea, Vomiting , Abdominal Pain, Heartburn - Genitourinary Genitourinary: REPORTS: Negative System Review (Per HPI) - Gynecological Gynecological: REPORTS: Negative System Review (Per HPI) : 2 Para: 2 Abortions.: 0 - Neurological Neurologic: REPORTS: Negative System Review - Psychiatric Psychiatric: REPORTS: Negative System Review, Anxiety Exam - Vitals Vital Signs: Vital Signs Temperature 97.6 F Temperature Source Temporal Artery Scan Pulse Rate [Apical] 62 Pulse Rate [Pulse Oximeter] 59 Pulse Rate 70 Respiratory Rate 17 Blood Pressure [Left Arm] 98/55 Blood Pressure 119/74 Pulse Ox 96 Oxygen Flow Rate 2 Oxygen Delivery Method Nasal Cannula Height 5 ft 9 in Weight 181 lb 3.2 oz - General General Appearance: No Acute Distress, Cooperative - Head Head Exam: Normal Inspection - Eye Eye Exam: POSITIVE: Normal Appearance - Neck Neck Exam: Normal Inspection, Full ROM - Respiratory Respiratory Exam: POSITIVE: Clear to Auscultation - Bilaterally, Breathing Non Labored - Cardiovascular Cardiovascular Exam: POSITIVE: RRR - GI/Abdominal GI/Abdominal Exam: POSITIVE: Normal Bowel Sounds, Non Tender, Non Distended, Soft (No guarding or rebound) - Rectal Rectal Exam: POSITIVE: Deferred - External Exam: POSITIVE: Normal External Inspection Exam: POSITIVE: Speculum Exam Normal (Cervix appeared normal and parous. Bimanual exam with cervix nontender to palpation-no cervical motion tenderness Uterus difficult to palpate completely secondary to her recent surgery and fullness at the incision site in the suprapubic area. However, there was no tenderness to palpation with the bimanual exam.). NEGATIVE: Vaginal Discharge, Cervical Motion Tender, Adnexal Tender (R), Adnexal Tender (L), Agarwal Catheter in Place - Extremities Extremities Exam: POSITIVE: Normal Inspection, Full ROM - Back Back Exam: POSITIVE: No CVA Tenderness. NEGATIVE: CVA Tenderness (L), CVA Tenderness (R) - Neurological Neurological Exam: POSITIVE: Alert, Oriented x 3 - Psychiatric Psychiatric Exam: POSITIVE: Normal Affect, Normal Mood. 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 This was completed 3 weeks ago. Over the past week the patient has had different types of pain and was actually admitted early this morning for pain that started in her right flank and then radiated down to her right upper leg and in the abdomen and pelvis. The CT scan showed what is thought to be a fibroid uterus and normal adnexa and her recent colon resection with ileostomy did show endometriosis by patient report although we do not have the operative report. The patient does not have a history of dysmenorrhea, chronic pelvic pain or dyspareunia. Dr. Burroughs, the hospitalist, asked that I see the patient to determine if I thought that the patient's pain might be secondary to endometriosis pain. My ECDIS N NAVIGATION OPERATOR exam did Not yield pain with exam including there was no cervical motion tenderness or uterine tenderness on bimanual exam. The patient's pain that she was admitted for was not reproduced during my ECDIS N NAVIGATION OPERATOR exam. In my opinion, the patient's recent findings of endometriosis without the patient's history of having dysmenorrhea, dyspareunia or chronic pelvic pain is not the current etiology for the patient's pain that she was admitted for early this morning. The patient does have a fibroid uterus by CT scan. The patient has not had a recent pelvic ultrasound to delineate the uterine architecture and adnexal architecture. Plan: I would be glad to follow this patient with the hospitalist while she is in the hospital. I will contact Dr. Burroughs-the hospitalist-to inform him of my findings. I have discussed my findings with the patient. If Dr. Burroughs would like to have better delineation of the patient's pelvic anatomy , a pelvic mkxckizecn-sytfjavoebvc-lxyeh be ordered for tomorrow during the day on a routine basis to look at the uterine architecture-fibroids and adnexa- ovaries and fallopian tubes. - Time/Visit Time Spent With Patient: 15-25 Minutes
[2017-05-02] MEDS: OMEPRAZOLE 20 MG CAPSULE PO SCH (21:16)
[2017-05-02] MEDS: Simvastatin Tab 40 MG TAB PO SCH (21:16)
[2017-05-03] MEDS: OMEPRAZOLE 20 MG CAPSULE PO SCH ×2 (00:08→08:06)
[2017-05-03] MEDS: KETOROLAC 15 MG/1 ML VIAL IVP PRN ×4 (00:30→21:07)
[2017-05-03] MEDS: HYDROmorphone 2 MG/1 ML IVP PRN (05:20)
[2017-05-03] MEDS: Sodium Chloride 0.9% 1,000 ML PRIMARY IV SCH ×3 (05:28→15:13)
[2017-05-03 06:02] LABS: BASOPHILS # (AUTO) 0.03 10*3/UL; BASOPHILS % (AUTO) 0.5 % (0-1); EOSINOPHILS # (AUTO) 0.25 10*3/UL; EOSINOPHILS % (AUTO) 4.3 % (0-8); Hematocrit [HCT] 32.2 % (37.0-47.0); Hemoglobin [HGB] 10.7 g/dL (12.0-16.0); MEAN CORPUSCULAR HEMOGLOBIN 29.5 PG (27-31); MEAN CORPUSCULAR HGB CONC 33.2 g/dL (33-37); MEAN CORPUSCULAR VOLUME 88.7 FL (81-99); MEAN PLATELET VOLUME 9.7 FL (7.4-12.2); MONOCYTES # (AUTO) 0.55 10*3/UL (0.3-0.8); MONOCYTES % (AUTO) 9.5 % (5-15); NEUTROPHILS # (AUTO) 4.48 10*3/UL; NEUTROPHILS % (AUTO) 76.9 % (50-80); RED BLOOD COUNT 3.63 10^6/uL (4.20-5.40)
[2017-05-03 06:07] LABS: BLOOD UREA NITROGEN 7 mg/dL (7-22); SERUM ALBUMIN 3.2 g/dL (3.5-4.8)
[2017-05-03 06:10] LABS: PLATELET MORPHOLOGY COMMENT NORMAL MORPHOLOGY (NORM); RBC MORPHOLOGY COMMENT NORMAL MORPHOLOGY (NORM); WBC MORPHOLOGY COMMENT NORMAL MORPHOLOGY (NORM)
[2017-05-03] MEDS: Apixaban 5 MG TABLET PO SCH ×2 (08:06→21:06)
[2017-05-03] MEDS: METOPROLOL SUCCINATE 50 MG SR 24H TABLET PO SCH ×3 (11:33→21:08)
[2017-05-03] MEDS: HYDROcodone-APAP 7.5 MG-325 MG TABLET PO PRN ×3 (12:07→18:29)
[2017-05-03] MEDS: Ertapenem Inj 1 GM in Sodium Chloride 0.9% 100 ML IV SCH (15:13)
--- NOTE | 2017-05-03 15:47 | PDOC(PROG) ---
Date and Time of Service: 05/03/2017, 1542 Interval History: Patient seen and evaluated, discussed in her cancer surgeon in the [place] area. Patient's pain is somewhat better, still radiating from her right flank down into her lower pelvic region. Overall more tolerable. Nausea and vomiting improved. Toradol seems to help the most with pain. Hungry. No chest pain and no shortness of breath. No fevers. Objective : Data - Labs CBC and BMP: 05/03/17 05:30 05/03/17 05:30 Additional Lab Results: We were able to review the surgical pathology, and she had 1 lymph node positive for endometriosis. Otherwise 0 of 16 lymph nodes dissected were positive for cancer. The surgical does show that the uterus was fairly adhered and had to be dissected away from the bladder wall. Also discussed the CT scan of the abdomen and pelvis with radiology and general surgery today. The very small foci of flare is so tiny it may not even be there. Objective : Exam - General General Appearance: No Acute Distress, Cooperative Additional General Exam Details: Vital Signs (24 hrs) Temp Pulse Pulse Resp BP Pulse Ox 05/03/17 11:21 98.1 F 66 18 107/64 93 05/03/17 06:36 98.2 F 72 17 100/58 91 05/03/17 05:44 92 05/03/17 05:00 76 16 107/61 99 05/03/17 00:37 97.1 F 66 16 106/61 97 05/02/17 21:00 97.4 F 61 14 96/48 98 05/02/17 19:00 62 66 05/02/17 16:32 97.6 F 59 L 17 98/55 96 - Eye Eye Exam: No Scleral Icterus - ENT ENT Exam: Mucous Membranes Moist - Respiratory Respiratory Exam: Clear to Auscultation - Bilaterally, Breathing Non Labored - Cardiovascular Cardiovascular Exam: RRR, No Murmur, No Clicks, No Gallops, No Rubs, No JVD - GI/Abdominal GI/Abdominal Exam: Normal Bowel Sounds, Non Distended, Soft Additional GI/Abdominal Exam Details: No CVA tenderness on palpation. No palpation to abdomen at this time of the exam earlier today. - Extremities Extremities Exam: No Clubbing Present, No Edema Present, No Cyanosis Present - Neurological Neurological Exam: Alert, Oriented x 3, No Facial Droop, Speech Intact / Clear, Moves All Extremities Equally Assessment and Plan - Patient Problems (1) Acute right flank pain Current Visit: Yes Status: Acute Code(s): R10.9 - Unspecified abdominal pain (2) Rectal cancer Current Visit: No Status: Acute Code(s): C20 - Malignant neoplasm of rectum (3) Hematuria Current Visit: Yes Status: Acute Code(s): R31.9 - Hematuria, unspecified Qualifiers: Hematuria type: other microscopic Qualified Code(s): R31.29 - Other microscopic hematuria; R31.2 - Other microscopic hematuria (4) Hypercholesterolemia Current Visit: Yes Status: Acute Code(s): E78.00 - Pure hypercholesterolemia , unspecified (5) Palpitations Current Visit: Yes Status: Acute Code(s): R00.2 - Palpitations - Assessment / Plan Additional Assessment/Plan Details: Overall the patient may have a very mild anastomotic leak that is probably sealing itself and healing. May need more time on antibiotics to allow inflammatory changes to improve. General surgery and the patient's answer surgeon seem to be in favor of this. We'll do 10-14 days total of antibiotics. Given that oxycodone has not been helping with pain, switch to hydrocodone which she has used before for her neck and seems to work better. Check labs in a.m. History still convincing for kidney stone on the right, but so far no evidence of stone with straining of urine. I suspect she passed the stone at the time of her urinalysis yesterday, if one was present. I would like to monitor here, get better control patient's pain, and convert her to oral pain medicines before discharge if possible. patient and family agree with the plan. given discussion with FLOOR INSTALLER, I will wait on pelvic ultrasound until after chemotherapy/any further radiation. patient and family in agreement with the plan.
[2017-05-03] MEDS ORDERED: OMEPRAZOLE 20 MG CAPSULE PO SCH (21:00)
[2017-05-03] MEDS: Simvastatin Tab 40 MG TAB PO SCH (21:07)
[2017-05-04] MEDS: HYDROmorphone 2 MG/1 ML IVP PRN ×2 (01:16→08:12)
[2017-05-04] MEDS: KETOROLAC 15 MG/1 ML VIAL IVP PRN (04:03)
[2017-05-04] MEDS: HYDROcodone-APAP 7.5 MG-325 MG TABLET PO PRN ×2 (08:02→12:20)
[2017-05-04] MEDS: Apixaban 5 MG TABLET PO SCH (08:03)
[2017-05-04] MEDS ORDERED: Naproxen Tab 500 MG TAB PO ONE (09:36)
[2017-05-04 10:14] LABS: BILIRUBIN,URINE NEGATIVE (NEG); CLARITY,URINE CLEAR (CLEAR); COLOR,URINE YELLOW (Y); GLUCOSE, URINE (UA) NEGATIVE (NEG); OCCULT BLOOD,URINE LARGE (NEG); PH,URINE 5.5 (5.0-8.5); PROTEIN,URINE 30 mg/dl (NEG); UROBILINOGEN,URINE 0.2 EU/dL (0.2)
[2017-05-04 10:26] LABS: BACTERIA,URINE FEW; RBC,URINE >100 /hpf; SQUAMOUS EPITHELIAL CELL,UR FEW; URINE SAMPLE TYPE VOIDED SPECIMEN; WBC,URINE 40-50
[2017-05-04] MEDS ORDERED: KETOROLAC 15 MG/1 ML VIAL IVP SCH (10:30)
--- NOTE | 2017-05-04 10:47 | CONSULT ---
Consult Note - Consult Consult Date: 05/04/17 Reason for Consult: PreOp Consulation : General Surgery Requesting Physician: Dr. Burroughs Primary Care Provider: TICO Justin - History of Present Illness History of Present Illness: Please see my clinic note dated 04/29/2017. Patient underwent a robotic low anterior resection with primary anastomosis and a diverting ileostomy on 2017. Her pain reportedly was difficult to control postoperatively. She called my office 2 weeks postoperatively with pelvic complaints. She was sent to the emergency room. She had a CT scan which shows some stranding in her pelvis but no other grossly abnormal findings. It was felt to be postoperative change. Her lab was normal. She did have a possible low-grade urinary tract infection. She was started on Septra DS. She followed up with me on 2017. She was still having some atypical pain complaints in her pelvis. Some pressure. I switched her to Augmentin. Over the weekend she had severe flank pain which radiated down to her right groin. She had difficulty finding a position of comfort. She presented to the emergency room and had greater than 100 red blood cells per high-powered field on her urinalysis. No signs of a urinary traction infection. Prior urinalysis showed 10-15 red cells per high-powered field. It sounded like she had a kidney stone. She had a CT with IV contrast. No mention was made of the ureter. In fact no mention was made of the ureter on 04/26/2017. A follow-up CT without IV contrast was done. There was no evidence of problems with her anastomosis or her ostomy. On the first CT the contrast had not gotten into the ureter so it was essentially a noncontrast study. An independent review by our radiologist says the ureter was enlarged with some fat stranding around it. The same was true back on 04/26/2017. The noncontrast CT now has contrast in the ureter. There is a caliber recovery unit operator the iliac vessels. The patient reports that she had a good night. She woke this morning and went to the bathroom. She brushed her teeth. She was walking back to bed and had severe right flank pain radiating down into her lower back. She could not find a position of comfort. She had appropriate pain medication and now feels better. She has not had any pain medication all along. She is tolerating a diet. Her stoma is functioning. A urinalysis was obtained this a.m. She still has greater than 100 RBCs per high powered field. I have to wonder whether this ureter is the source of her problems. At some point she will likely need a retrograde ureterogram or ureteroscopy. I discussed this with the hospitalist as well as the patient. Her urine is being strained. No stones have been found so far. Past Medical History Medical History: 1. Rectal carcinoma. 2. Palpitations, presumably related to PVCs, on beta negro therapy for this. 3. History of PEs 2, in relation to her recent Mediport for chemotherapy and also with a knee surgery in the past. 4. Hypercholesterolemia Surgical History: Mediport placed. History of colonoscopy. History of EGD. History of neck surgery. Status post endometrial ablation (~2005). Status post knee surgery (~2005). The patient had recent partial colon resection with an ileostomy Pertinent Family History: Significant for heart disease and diabetes Past Social History: Does not smoke or drink alcohol. . Has 2 healthy children both in college. 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 Tobacco Use: Never Smoker In the Past 12 Months, Have Used or Abuse Any of the Following Substance: None Alcohol Use: None Medication / Allergies Home Medications: Home Medications 3 Medication Instructions Recorded Confirmed Type Simvastatin [Zocor] 1 tab ORAL QD #90 tab 08/06/16 05/03/17 Rx Metoprolol Succinate 75 mg PO QD #90 tab 10/07/16 Clinic Apixaban [Eliquis] 5 mg PO Q12H #60 tab 02/20/17 05/03/17 Rx sxydcfzjor-tsamkggvkhzmk-ihwniyoy 1 cap PO Q4H PRN #30 cap 03/25/17 05/03/17 Rx 50 mg-300 mg-40 mg capsule amoxicillin 875 mg-potassium 1 tab PO BID #10 tab 04/30/17 05/03/17 Rx clavulanate 125 mg tablet Omeprazole 20 mg PO BEDTIME 05/03/17 05/03/17 History Oxycodone HCl 5 mg PO Q4H PRN 05/03/17 05/03/17 History Allergies/Adverse Reactions: Allergies 3 Allergy/AdvReac Type Severity Reaction Status Date / Time morphine AdvReac Intermediate tightness Verified 05/04/17 06:45 in chest Results - Labs CBC and BMP: 05/03/17 05:30 05/03/17 05:30 - Imaging Status: Image Reviewed by Me (And discussed with the radiologist.), Report Reviewed by Me Exam - Vitals Vital Signs: Vital Signs Temperature 97.8 F Temperature Source Temporal Artery Scan Pulse Rate [Apical] 72 Pulse Rate [Pulse Oximeter] 84 Pulse Rate 70 Respiratory Rate 20 Blood Pressure [Left Arm] 126/80 Blood Pressure 119/74 Pulse Ox 92 Oxygen Flow Rate 2 Oxygen Delivery Method Room Air Height 5 ft 9 in Weight 187 lb 12.8 oz - General General Appearance: No Acute Distress, Cooperative - Respiratory Respiratory Exam: POSITIVE: Clear to Auscultation - Bilaterally, Breathing Non Labored - Cardiovascular Cardiovascular Exam: POSITIVE: RRR, No Murmur - GI/Abdominal GI/Abdominal Exam: POSITIVE: Normal Bowel Sounds, Non Tender, Non Distended, Soft Additional GI/Abdominal Exam Details: Incisions are well-healed. Stoma is functioning. Benign abdominal exam. No costovertebral angle tenderness at this time. - Neurological Neurological Exam: POSITIVE: Alert, Oriented x 3 - Psychiatric Psychiatric Exam: POSITIVE: Normal Affect, Normal Mood Assessment and Plan - Patient Problems (1) Acute right flank pain Current Visit: Yes Status: Acute Priority: High Onset Date: ~05/01/17 Comment: Sounds as though she is passing a kidney stone. Abnormal ureter on CT scan. Blood in her urinalysis. No stones have been retrieved. Possibly needs transfer to see a urologist who can do a retrograde study of her right ureter, either it ureteroscopy or retrograde ureterogram. Consider Flomax and continued observation with straining of her urine. This might explain her atypical postoperative course. I have discussed this with the patient as well as Dr. Burroughs. Code(s): R10.9 - Unspecified abdominal pain (2) Status post partial resection of colon Current Visit: Yes Status: Acute Priority: Medium Onset Date: 04/12/17 Comment: Surgically doing very well. No evidence of postoperative complication. Code(s): Z90.49 - Acquired absence of other specified parts of digestive tract
[2017-05-04] MEDS: Sodium Chloride 0.9% 1,000 ML PRIMARY IV SCH (11:02)
--- NOTE | 2017-05-04 12:23 | DCSUMMARY ---
Hospitalization Summary Admit Date: 05/02/2017 Discharge Date: 05/04/17 Primary Diagnosis:: hydro-ureter Secondary Diagnosis:: Probable anastomotic leak, no abscess. On Invanz, day #3. Hospital Course: This very pleasant 42-year-old female with rectal adenocarcinoma status post colon resection with reanastomosis and a diverting ileostomy. She has had some intermittent problems with flank pain, initially on the left than on the right side and much more significantly on the right side for which she was admitted on this hospital stay. She was treated for urinary tract infection and those symptoms seem to resolve on the left, but those symptoms of flank pain with radiation in the pelvic area were spasmodic and quite persistent through the hospital stay here. We thought she might have a stone, but CT scan was negative for a kidney stone. We felt that she might have an anastomotic leak with the presacral inflammatory changes and a possible small foci of air around the anastomosis and placed her on Invanz to treat for that. I spoke with the patient's colorectal surgeon Dr. Fonseca, and also Dr. Mcadams, her general surgeon here, and they were both okay with keeping her on treatment for this anastomotic leak as if it might be a diverticulitis for 10-14 days total of antibiotics. She is on day 3 of Invanz. This pain was quite persistent, general surgeon recommended consideration for having a urologist look at the films, and I spoke with Dr. Plascencia in [place], and he agreed that there was hydroureter ureter and that the patient may need ureteroscopy and possible stent placement. Given the complexities of the anastomotic leak issues, I felt that it would be best to have this patient admitted to the hospitalist I spoke with Dr. Winkler who agreed to accept the patient. Today, the patient's had intermittent right flank pain that required pain medications. No complains of chest pain, shortness breath, nausea or vomiting. No fevers or chills. Assessment and Plan: 1. As per discharge assessments noted 2. Disposition: Patient is discharged to [facility] [place] 3. Condition on discharge, stable and improved. The condition could always could deteriorate as she is in the setting of an acute issue. 4. Diet: She just finished lunch, but we will keep her nothing by mouth for now 5. Activities: resume normal activities post acute care stay 6. Follow-Up: 1. See oncology, Dr. Meléndez, post hospital stay. 2. 7. Medications at the Time of Discharge: Active Medications Generic Name Dose Route Start Last Admin Trade Name Freq PRN Reason Stop Dose Admin Acetaminophen 650 mg 05/02/17 02:11 Tylenol PO Q6H PRN Pain or Fever Acetaminophen/Butalbital/Caffeine 1 tab 05/02/17 02:30 05/02/17 07:58 Fioricet PO 1 tab Q4H PRN Administration pain Hydrocodone Bitart/Acetaminophen 1 - 2 tab 05/03/17 11:30 05/04/17 12:20 [place] 7.5/325 Tab PO 2 tab Q4H PRN Administration Pain Apixaban 5 mg 05/02/17 09:00 05/04/17 08:03 Eliquis PO 5 mg BID MAKSIM Administration Calcium Carbonate 1 - 2 tab 05/02/17 02:11 Tums PO Q6H PRN Heartburn Diazepam 5 mg 05/02/17 05:13 Valium PO Q6H PRN Anxiety Docusate Sodium 100 mg 05/02/17 02:11 Colace PO BID PRN Constipation Heparin Sodium (Porcine) 500 unit 05/02/17 15:22 Heparin Lock Inj (For Central Line) IVP BID PRN Flush Sodium Chloride 25 mls @ 200 mls/hr 05/02/17 02:11 Normal Saline 0.9% IV .Post Infusion PRN No Primary IV for Flush ONLY Ertapenem 1 gm/ Sodium 100 mls @ 200 mls/hr 05/02/17 15:45 05/03/17 15:13 Chloride IV 200 mls/hr Q24H MAKSIM Administration Sodium Chloride 1,000 mls @ 50 mls/hr 05/03/17 12:13 05/04/17 11:02 Normal Saline PRIMARY IV 50 mls/hr .Q20H MAKSIM Administration Ketorolac Tromethamine 30 mg 05/04/17 14:00 Toradol Inj IVP Q6H MAKSIM Lidocaine HCl 0.5 ml 05/02/17 02:11 Lidocaine Buffered Inj SUBD ONCE PRN IV Starts Metoprolol Succinate 50 mg 05/03/17 21:00 05/03/17 21:08 Toprol Xl PO Not Given BEDTIME MAKSIM Omeprazole 20 mg 05/03/17 21:00 05/03/17 21:07 Prilosec PO 20 mg BEDTIME MAKSIM Administration Ondansetron HCl 4 mg 05/02/17 02:11 05/02/17 12:34 Zofran Inj IVP 4 mg Q4H PRN Administration NAUSEA / VOMITING Prochlorperazine Edisylate 10 mg 05/02/17 15:40 05/02/17 15:57 Compazine Inj IVP 10 mg Q6H PRN Administration Nausea and Vomiting Simvastatin 40 mg 05/02/17 21:00 05/03/17 21:07 Zocor PO 40 mg BEDTIME MAKSIM Administration Sodium Chloride 5 - 20 ml 05/02/17 02:11 Saline Flush IVP BID PRN Flush Please note that the patient's surgeon, Dr. Mandujano in terms of her oncology surgery can be reached at [phone] 8. Time, care, counseling and coordination of care for this discharge is greater than 30 minutes. Exam - Vitals Vital Signs: Vital Signs Temperature 97.7 F Temperature Source Temporal Artery Scan Pulse Rate [Apical] 72 Pulse Rate [Pulse Oximeter] 66 Pulse Rate 70 Respiratory Rate 20 Blood Pressure [Left Arm] 113/61 Blood Pressure 119/74 Pulse Ox 96 Oxygen Flow Rate 2 Oxygen Delivery Method Room Air Height 5 ft 9 in Weight 187 lb 12.8 oz - General General Appearance: No Acute Distress, Cooperative - Eye Eye Exam: POSITIVE: No Scleral Icterus - ENT ENT Exam: POSITIVE: Mucous Membranes Moist - Respiratory Respiratory Exam: POSITIVE: Clear to Auscultation - Bilaterally, Breathing Non Labored - Cardiovascular Cardiovascular Exam: POSITIVE: RRR, No Murmur, No Clicks, No Gallops, No Rubs, No JVD - GI/Abdominal GI/Abdominal Exam: POSITIVE: Normal Bowel Sounds, Non Distended, Soft - Extremities Extremities Exam: POSITIVE: No Clubbing Present, No Edema Present, No Cyanosis Present - Neurological Neurological Exam: POSITIVE: Alert, Oriented x 3, Normal Gait, No Facial Droop, Speech Intact / Clear, Moves All Extremities Equally Data Peritnent Studies: 05/02/17 05/02/17 05/03/17 10:08 10:08 05:30 WBC 5.82 Hgb 10.7 L Hct 32.2 L Plt Count 285 PT 11.4 INR 1.07 APTT 33.2 Sodium Potassium Chloride Carbon Dioxide Anion Gap BUN Creatinine Estimated GFR BUN/Creatinine Ratio Glucose Calculated Osmolality Lactic Acid 0.6 L Calcium Total Bilirubin AST ALT Alkaline Phosphatase Total Protein Albumin Globulin Albumin/Globulin Ratio Ur Collection Type Urine Color Urine Clarity Urine pH Ur Specific [place] Urine Protein Urine Glucose (UA) Urine Ketones Urine Occult Blood Urine Nitrate Urine Bilirubin Urine Urobilinogen Ur Leukocyte Esterase Urine RBC Urine WBC Ur Squamous Epith Cells Ur Renal Epithelial Cell Urine Crystals Urine Bacteria Urine Casts Urine Mucus Urine Trichomonas Urine Yeast Ur Culture Indicated? 05/03/17 05/04/17 05:30 10:05 WBC Hgb Hct Plt Count PT INR APTT Sodium 140 Potassium 4.0 Chloride 107 Carbon Dioxide 25 Anion Gap 8 BUN 7 Creatinine 0.7 Estimated GFR > 60 BUN/Creatinine Ratio 10.00 Glucose 95 Calculated Osmolality 287.0 Lactic Acid Calcium 8.7 Total Bilirubin 0.3 AST 26 ALT 29 Alkaline Phosphatase 60 Total Protein 5.6 L Albumin 3.2 L Globulin 2.4 L Albumin/Globulin Ratio 1.30 Ur Collection Type Voided specimen Urine Color Yellow Urine Clarity Clear Urine pH 5.5 Ur Specific [place] 1.015 Urine Protein 30 A Urine Glucose (UA) Negative Urine Ketones Trace A Urine Occult Blood Large H Urine Nitrate Negative Urine Bilirubin Negative Urine Urobilinogen 0.2 Ur Leukocyte Esterase Trace Urine RBC >100 A Urine WBC 40-50 Ur Squamous Epith Cells Few Ur Renal Epithelial Cell None Urine Crystals None Urine Bacteria Few Urine Casts None Urine Mucus Many Urine Trichomonas None Urine Yeast None Ur Culture Indicated? Culture set 05/01/17 05/01/17 23:10 23:10 Amylase 83 Lipase 64 Serum HCG, Qual Negative 04/26/17 12:27 Urine Culture - Final Urine,Random Was positive for 50,000 colony-forming units group B strep and beta-hemolytic strep. [address] [facility] [place] [address] PH: DD: [phone] FAX: [phone] ~DIAGNOSTIC IMAGING REPORT~ Patient: Annika Johnston : 1975 Sex: F Age: 42 Exam Name: CT Abdomen/Pelvis WO Contrast Exam Date: 05/02/17 Report # : [id number] CPT Code: 48726 EMR/MR #: [id number] Ordering: ALIYA MORGAN Admiting: ALIYA MORGAN DO Primary: TICO Justin Attending: ALIYA MORGAN DO Signed EXAM: CT Abdomen and Pelvis Without Intravenous Contrast CLINICAL HISTORY: right flank pain, question kidney stone TECHNIQUE: Axial computed tomography images of the abdomen and pelvis without intravenous contrast. COMPARISON: CT abdomen and pelvis obtained earlier the same date. FINDINGS: Lower thorax: Mild to moderate hiatal hernia. Linear atelectasis in bilateral lung bases. ABDOMEN: Liver: Unremarkable. Gallbladder and bile ducts: Layering hyperdensity in the bladder lumen likely related to vicarious contrast excretion. No adjacent inflammatory change. No ductal dilation. Pancreas: Unremarkable. No ductal dilation. Spleen: Unremarkable. No splenomegaly. Adrenals: Unremarkable. No mass. Kidneys and ureters: Urinary contrast excretion likely related to recent contrast dose decreases sensitivity for detection of small renal stones. No large radiodense renal or ureteral stones identified. No evidence of obstructive uropathy. 4.7 cm simple-appearing cyst in the left lower renal pole. Stomach and bowel: Right lower quadrant ileostomy. Anastomosis sutures in the rectum. Adjacent presacral stranding and fluid, likely postsurgical. No obstruction. No mucosal thickening. Appendix: No findings to suggest acute appendicitis. PELVIS: Bladder: Unremarkable. Reproductive: Bulky lobulated appearance of the uterus suggests fibroids. ABDOMEN and PELVIS: Intraperitoneal space: Tiny foci of free air. No significant fluid collection. Bones/joints: Degenerative changes at the lumbosacral junction. No acute fracture. No dislocation. Soft tissues: Unremarkable. Vasculature: Unremarkable. No abdominal aortic aneurysm. Lymph nodes: Unremarkable. No enlarged lymph nodes. IMPRESSION: 1. Urinary contrast excretion related to recent contrast dose decreases sensitivity for detection of small renal stones. No large radiodense renal or ureteral stones identified. No evidence of obstructive uropathy. 2. Layering hyperdensity in the gallbladder lumen likely related to vicarious contrast excretion. Differential may also include sludge. No adjacent inflammatory change. Normal caliber of the common bile duct. 3. Mild to moderate hiatal hernia. 4. 4.7 cm simple-appearing cyst in the left lower renal pole. 5. Post surgical changes including right lower quadrant ileostomy and a rectal anastomosis. No bowel obstruction. Tiny foci of free air as well as presacral stranding and fluid adjacent to the rectal anastomosis is likely postsurgical. 6. Bulky lobulated appearance of the uterus suggests fibroids. Dictated By: Gurmeet Rose MD., PHD. Signed By: 05/02/17 141 Gurmeet Rose MD., PHD. Patient Problems - Patient Problem List (1) Hydroureter Current Visit: Yes Status: Acute Code(s): N13.4 - Hydroureter Category: Medical (2) Anastomotic leak of intestine Current Visit: Yes Status: Suspected Code(s): K91.89 - Other postprocedural complications and disorders of digestive system Category: Medical (3) Acute right flank pain Current Visit: Yes Status: Acute Onset Date: ~05/01/17 Priority: High Code(s): R10.9 - Unspecified abdominal pain Category: Medical (4) Rectal cancer Current Visit: Yes Status: Resolved Comment: Status post chemotherapy and radiation therapy. Incomplete response.Status post surgical resection. Complete surgical resection with negative lymph nodes x16. Code(s): C20 - Malignant neoplasm of rectum Category: Medical (5) Hematuria Current Visit: Yes Status: Acute Code(s): R31.9 - Hematuria, unspecified Qualifiers: Hematuria type: other microscopic Qualified Code(s): R31.29 - Other microscopic hematuria; R31.2 - Other microscopic hematuria Category: Medical (6) Hypercholesterolemia Current Visit: Yes Status: Acute Code(s): E78.00 - Pure hypercholesterolemia , unspecified Category: Medical (7) Palpitations Current Visit: Yes Status: Acute Code(s): R00.2 - Palpitations Category: Medical
[2017-05-04 13:32] VITALS: BP 112/68; RESP 14; TEMP 97.3; O2SAT 94
[2017-05-04] MEDS ORDERED: KETOROLAC 30 MG/1 ML VIAL IVP SCH (14:00)
[2017-05-04] MEDS ORDERED: Naproxen Tab 500 MG TAB PO SCH (17:00)
== END 2017-05-04 13:26 | disposition short-term general hospital (02) | DRG 392 ==
LOC: ER 22:35 → MED/SURG 05-02 01:57
PROVIDERS: ADMIT Family Medicine; ATTEND Family Medicine